=== PATIENT | female | born 1990 | race Caucasian/White ===

== ENCOUNTER → 2017-06-15 | Outpatient (CLI) | payer OTHER ==
--- NOTE | 2017-06-15 16:36 | US ---
EXAMINATION TYPE: US pelvic complete DATE OF EXAM: 06/15/2017 COMPARISON: NONE CLINICAL HISTORY: N92.1 Menorrhagia. Pt states non-stop vaginal bleeding x 5 months/ unexplained weig ht gain TECHNIQUE: Transvaginal (TV) and Transabdominal (TA) . Limited transabdominal sonographic images of the pelvis were acquired. Pt unable to hold bladder, wanted to end TA and do TV. Transvaginal sonog raphic images were medically necessary to better assess the following anatomy: All pelvic anatomy EXAM MEASUREMENTS: Uterus: 7.0 x 4.6 x 4.9 cm Endometrial Stripe: 1.0 cm Right Ovary: 4.0 x 2.4 x 3.2 cm Left Ovary: 4.0 x 2.4 x 3.5 cm 1. Uterus: Retroverted Heterogeneous, Nabothian cyst in cervix, possible fibroid at fundus= 1.6 x 1. 5 x 1.9 cm 2. Endometrium: thickened for pt's symptoms 3. Right Ovary: Enlarged, Polycystic in appearance 4. Left Ovary: Enlarged, Polycystic in appearance 5. Bilateral Adnexa: Free fluid right adnexa 6. Posterior cul-de-sac: wnl Heterogeneous uterus is present. Fairly large nabothian cyst is noted in the cervix on image 14. Endo metrium measures 10 mm which is within normal limits for secretory phase of menstrual cycle. Last kno wn menstrual period is not provided. No free fluid is seen in pelvic cul-de-sac. Both ovaries are identified and prominent in size with multiple peripheral follicles, some fluid luiz cent to right ovary is noted. IMPRESSION: Prominent bilateral ovaries with multiple follicles or simple small ovarian cyst raises c oncern for polycystic ovarian disease, correlate clinically.
== END | disposition home or self-care (01) ==
LOC: RADUSWWP 15:05
PROVIDERS: ATTEND Obstetrics & Gynecology
DX: N83.201 Unspecified ovarian cyst, right side (principal); N83.202 Unspecified ovarian cyst, left side
CPT/HCPCS: 76830; 76856

== ENCOUNTER → 2018-02-02 | Outpatient (CLI) | payer OTHER ==
[2018-02-02 12:13] LABS: Basophils % (A) 0 %; Eosinophils # (A) 0.1 k/uL (0-0.7); Eosinophils % (A) 2 %; HCT 39.9 % (34.0-46.0); HGB 12.7 gm/dL (11.4-16.0); Lymphocytes % (A) 29 %; MCH 28.5 pg (25.0-35.0); MCV 89.2 fL (80.0-100.0); Mean Platelet Volume 6.5; Monocytes # (A) 0.4 k/uL (0-1.0); Monocytes % (A) 5 %; Neutrophils # (A) 4.3 k/uL (1.3-7.7); Neutrophils % (A) 62 %; Platelet Count 280 k/uL (150-450); RBC 4.47 m/uL (3.80-5.40); RDW 12.6 % (11.5-15.5); WBC 6.9 k/uL (3.8-10.6)
[2018-02-02 17:13] LABS: Albumin 4.7 g/dL (3.80-4.90); Albumin/Globulin Ratio 2.04 (1.20-2.10); Calcium 9.8 mg/dL (8.7-10.3); Globulin 2.3 g/dL (2.1-3.7); LDL Cholesterol,Calculated 63.4 mg/dL (0.0-131.0); Potassium 4.6 mmol/L (3.5-5.5); Total Bilirubin 0.4 mg/dL (0.3-1.2); VLDL Calculation 46.6 mg/dL (5.00-40.00)
[2018-02-02 17:22] LABS: T4, Free (Free Thyroxine) 1.1 ng/dL (0.80-1.80)
== END | disposition home or self-care (01) ==
LOC: LABWHC1 10:28
PROVIDERS: ATTEND Physician Assistant
DX: E28.2 Polycystic ovarian syndrome (principal); R73.03 Prediabetes
CPT/HCPCS: 36415; 80053; 80061; 84439; 84443; 85025

== ENCOUNTER → 2018-02-02 | Outpatient (CLI) | payer OTHER ==
--- NOTE | 2018-02-02 12:06 | XR ---
EXAM TYPE: LUMBAR SPINE X RAY SERIES COMPARISON: NONE HISTORY: Pain TECHNIQUE: 3 views are submitted. FINDINGS: Alignment is anatomic. The pedicles are intact. The transverse processes are intact. There is no s pondylolysis or spondylolisthesis. Disc space is preserved. There is sclerosis involving the SI joint s which may been the basis of sacroiliitis. Very minimal hypertrophic spurring noted at multiple vert ebral segments. No compression deformities. IMPRESSION: 1. No significant degenerative disc disease. However, there suggestion of sclerosis involving the SI joints. Recommend SI joint series. If there is concern for disc herniation then correlate with MRI..
== END | disposition home or self-care (01) ==
LOC: RADXRMAIN 11:30
PROVIDERS: ATTEND Family Medicine
DX: M54.5 Low back pain (principal)
CPT/HCPCS: 72100

== ENCOUNTER → 2018-02-19 | Outpatient (CLI) | payer OTHER ==
--- NOTE | 2018-02-22 11:38 | XR ---
EXAMINATION TYPE: XR sacroiliac joint comp BILAT DATE OF EXAM: 02/19/2018 COMPARISON: NONE HISTORY: 27-year-old female increasing chronic pain, M54.5, low back pain. TECHNIQUE: 3 views FINDINGS: There is mild subarticular sclerosis of the SI joints. No discrete subarticular erosions. Small delin eation to the arcuate lines of the sacrum. No abnormal ankylosis. IMPRESSION: There is mild sclerosis at the SI joints which may reflect early degenerative change. Query any repet itive activities. No subarticular erosions seen to indicate inflammatory arthropathy at this time.
== END | disposition home or self-care (01) ==
LOC: RADXRMAIN 16:46
PROVIDERS: ATTEND Family Medicine
DX: M53.3 Sacrococcygeal disorders, not elsewhere classified (principal); M54.5 Low back pain
CPT/HCPCS: 72202

== ENCOUNTER 2018-06-23 08:20 | Emergency (ER) | payer OTHER ==
[2018-06-23] MEDS ORDERED: IBUPROFEN 600 MG TAB PO STA (08:31)
[2018-06-23] MEDS ORDERED: ACETAMINOPHEN TAB 500 MG TAB PO STA (08:31)
[2018-06-23] MEDS ORDERED: IPRATROPIUM-ALBUTEROL 3 ML NEB INHALATION STA (08:41)
--- NOTE | 2018-06-23 08:43 | ED ---
URI HPI - General Chief Complaint: Upper Respiratory Infection Stated Complaint: Chest pain Time Seen by Provider: 06/23/18 08:31 Source: patient, RN notes reviewed, old records reviewed Mode of arrival: ambulatory Limitations: no limitations - History of Present Illness Initial Comments: Patient is a 28-year-old female who presents emergency Department today with complaints of cough congestion by nose and watery eyes for the past 2 days. Patient has had high fever. She had Tylenol PM last night. She has emergency Department with fever 102. She reports that her sister had a bad cold last week. She denies any abdominal pain. She reports that she has a productive cough. She has a history of asthma.Patient denies any recent shortness of brigette ath, chest pain, back pain, abdominal pain, nausea vomiting, numbness or tingling, dysuria or hematuria, constipation or diarrhea, headaches or visual changes, or any other current symptoms - Related Data Home Medications Medication Instructions Recorded Confirmed Loratadine [Claritin] 07/11/13 08/13/13 Previous Rx's Medication Instructions Recorded predniSONE 40 mg PO DAILY #8 tab 07/11/13 Albuterol Sulfate [Ventolin HFA] 2 puff INHALATION Q4H PRN #1 08/14/13 inhaler predniSONE 20 mg PO BID #8 tab 08/14/13 Azithromycin [Zithromax Z-pack] 250 mg PO DIRECTED #6 tab 06/23/18 Ipratropium-Albuterol Nebulize 3 ml INHALATION QID #20 neb 06/23/18 [Duoneb 0.5 mg-3 mg/3 ml Soln] methylPREDNISolone Dose Pack 4 mg PO DIRECTED #21 package 06/23/18 [Medrol Dose Pack] Allergies Allergy/AdvReac Type Severity Reaction Status Date / Time seafood Allergy Rash/Hives Uncoded 06/23/18 08:26 Review of Systems ROS Statement: Those systems with pertinent positive or pertinent negative responses have been documented in the HPI. ROS Other: All systems not noted in ROS Statement are negative. Past Medical History Past Medical History: Asthma History of Any Multi-Drug Resistant Organisms: None Reported Past Surgical History: No Surgical Hx Reported Past Psychological History: No Psychological Hx Reported Smoking Status: Former smoker Past Alcohol Use History: Rare Past Drug Use History: None Reported General Exam - General Exam Comments Initial Comments: 28-year-old female. Alert and oriented 3. Mild discomfort noted. Limitations: no limitations General appearance: alert, in no apparent distress Head exam: Present: atraumatic, normocephalic, normal inspection Eye exam: Present: normal appearance, PERRL, EOMI, other (Bilateral conjunctival injection.). Absent: scleral icterus, conjunctival injection, periorbital swelling ENT exam: Present: normal exam, mucous membranes moist, other (Rhinorrhea noted) Neck exam: Present: normal inspection. Absent: tenderness, meningismus, lymphad enopathy Respiratory exam: Present: wheezes. Absent: normal lung sounds bilaterally, respiratory distress, rales, rhonchi, stridor Cardiovascular Exam: Present: regular rate, normal rhythm, normal heart sounds. Absent: systolic murmur, diastolic murmur, rubs, gallop, clicks GI/Abdominal exam: Present: soft, normal bowel sounds. Absent: distended, tenderness, guarding, rebound, rigid Extremities exam: Present: normal inspection, full ROM, normal capillary refill. Absent: tenderness, pedal edema, joint swelling, calf tenderness Back exam: Present: normal inspection Neurological exam: Present: alert, oriented X3, CN II-XII intact Psychiatric exam: Present: normal affect, normal mood Skin exam: Present: warm, dry, intact, normal color. Absent: rash Course Vital Signs 06/23/18 06/23/18 06/23/18 08:22 08:50 08:59 Temperature 102.2 F H Pulse Rate 139 H 132 H 136 H Respiratory 20 Rate Blood Pressure 135/83 O2 Sat by Pulse 93 L Oximetry Medical Decision Making - Medical Decision Making Patient is a 28 rolled female presents emergency department today with cough fever congestion for the past 2 days. Patient is was a test is negative. She is given Motrin Tylenol for high fever. She is not immunocompromised. Patient did have some wheezing on exam was given DuoNeb treatment with improvement. Chest x-ray shows evidence of a left lower lobe pneumonia. Patient was given IM Rocephin slight Medrol and azithromycin. We'll discharge the Patient at this time with prescriptions for azithromycin and DuoNeb to use in patients updraft machine. I discussed that she needs to follow-up with her primary care doctor for recheck. Discussed return parameters. Discussed alternating Motrin Tylenol for headaches and pains. - Lab Data Lab Results 04/24/19 Range/Units 08:53 Influenza Type A RNA Not Detected (Not Detectd) Influenza Type B (PCR) Not Detected (Not Detectd) - Radiology Data Radiology results: report reviewed Left lower lobe pneumonia versus atelectasis. May be minimal effusion. Follow- up to resolution. Disposition Clinical Impression: Pneumonia Disposition: HOME SELF-CARE Condition: Good Instructions (If sedation given, give patient instructions): Community Acquired Pneumonia (ED) Additional Instructions: Take medications as prescribed. Follow-up with your primary care physician within 1 to 2 days. Alternate between Motrin Tylenol every 4 hours. Rest, remain hydrated. Prescriptions: Ipratropium-Albuterol Nebulize [Duoneb 0.5 mg-3 mg/3 ml Soln] 3 ml INHALATION QID #20 neb methylPREDNISolone Dose Pack [Medrol Dose Pack] 4 mg PO DIRECTED #21 package Azithromycin [Zithromax Z-pack] 250 mg PO DIRECTED #6 tab Is patient prescribed a controlled substance at d/c from ED?: No Referrals: Panda Driver DO [Primary Care Provider] - 1-2 days Time of Disposition: 09:46
--- NOTE | 2018-06-23 09:13 | XR ---
EXAMINATION TYPE: XR chest 2V DATE OF EXAM: 06/23/2018 COMPARISON: Prior chest x-ray 01/08/2013 HISTORY: Pain and fever TECHNIQUE: Frontal and lateral views of the chest are obtained. FINDINGS: There is retrocardiac density present. No pneumothorax or evident sizable effusion. Minima l blunting the posterior costophrenic angle noted on the left on the lateral radiograph. Heart size i s within normal limits. Patient is rotated. IMPRESSION: Left lower lobe pneumonia versus atelectasis, there may be minimal effusion. Follow-up t o resolution.
[2018-06-23] MEDS ORDERED: cefTRIAXone 1,000 MG VIAL (IM USE) IM STA (09:28)
[2018-06-23] MEDS ORDERED: AZITHROMYCIN 500 MG TAB PO STA (09:28)
[2018-06-23] MEDS ORDERED: methylPREDNISolone SOD SUCCI 125 MG/2 ML VIAL IM ONE (09:29)
[2018-06-23 10:21] VITALS: BP 115/78; PULSE 115; RESP 17; TEMP 100.3
== END 2018-06-23 10:30 | disposition home or self-care (01) ==
LOC: EC 08:20
DX: J18.1 Lobar pneumonia, unspecified organism (principal); Z79.899 Other long term (current) drug therapy; Z91.013 Allergy to seafood; Z87.891 Personal history of nicotine dependence
CPT/HCPCS: 94640; 87502; 71046; 99285; 96372 ×2; J2930; J0696

== ENCOUNTER → 2018-11-24 | Outpatient (CLI) | payer OTHER ==
--- NOTE | 2018-11-25 11:17 | XR ---
Thoracic spine HISTORY: Chronic pain 2 views of the thoracic spine on 3 images Thoracic vertebral bodies show preserved height, alignment, and bone mineralization. Disc spaces are maintained. Mild multilevel spondylosis present at the midthoracic level. No paraspinal mass. Minimal spinal curvature noted incidentally. IMPRESSION: Mild thoracic spondylosis.
== END | disposition home or self-care (01) ==
LOC: RADXRMAIN 16:59
PROVIDERS: ATTEND Family Medicine
DX: M47.814 Spondylosis without myelopathy or radiculopathy, thoracic region (principal)
CPT/HCPCS: 72070